=== PATIENT | female | born 1995 | race Hispanic/Latino ===

== ENCOUNTER 2023-02-06 15:38 | Day surgery (SDC) | payer OTHER ==
[2023-02-06] MEDS ORDERED: hydrALAZINE 20 MG/ML VIAL SLOW IVP PRN (16:50)
== END 2023-02-06 18:15 | disposition home health service (06) ==
LOC: CSHLD/OP 15:38
PROVIDERS: ATTEND Obstetrics & Gynecology
DX: O36.8130 Decreased fetal movements, third trimester, not applicable or unspecified (principal); Z79.899 Other long term (current) drug therapy; Z3A.36 36 weeks gestation of pregnancy
CPT/HCPCS: 76819; 99282

== ENCOUNTER 2023-02-17 10:51 | Inpatient (IN) | payer OTHER ==
[2023-02-17] MEDS ORDERED: Penicillin G Potassium 5 MILL.UNITS VIAL ONE (11:41)
[2023-02-17] MEDS ORDERED: Ibuprofen 800 MG TAB PO PRN (11:54)
[2023-02-17] MEDS ORDERED: HYDROcodone/Acetaminophen 5/325 mg Tablet PO PRN ×2 (11:54)
[2023-02-17] MEDS ORDERED: hydrALAZINE 20 MG/ML VIAL SLOW IVP PRN (11:54)
[2023-02-17] MEDS ORDERED: Promethazine HCl 25 MG/ML VIAL IM PRN (11:54)
[2023-02-17] MEDS ORDERED: Ondansetron PF 4 MG/2 ML Vial IVP PRN (11:54)
[2023-02-17] MEDS ORDERED: Lidocaine 1% (PF) 30 ML VIAL SC PRN (11:54)
[2023-02-17] MEDS ORDERED: NS w/ Oxytocin 30 units 500 ML IV SCH ×2 (12:00)
[2023-02-17] MEDS ORDERED: Lactated Ringer's 1,000 ML IV SCH (12:00)
[2023-02-17] MEDS ORDERED: Penicillin G Potassium 5 MILL.UNITS in Sodium Chloride 0.9% 100 ML IVPB SCH (12:00)
[2023-02-17] MEDS ORDERED: fentaNYL 50 mcg/mL 1 mL Vial SLOW IVP PRN (12:10)
[2023-02-17 12:37] LABS: Hemoglobin 12.3 g/dL (12.0-15.5); Mean Corpuscular HGB CONC 33.4 g/dL (32.0-36.0); Mean Corpuscular Hemoglobin 28.3 pg (27.0-33.0); Mean Corpuscular Volume 84.8 fl (81.6-98.3); Mean Platelet Volume 10.1 fl (7.4-10.4); Platelet Count 359 10x3/uL (150-450); RBC Distribution Width 12.9 % (11.5-14.5); Red Blood Cell (RBC) Count 4.34 10x6/uL (3.90-5.03); White Blood Cell (WBC) Count 9.9 10x3/uL (3.5-10.5)
[2023-02-17 13:23] LABS: HBSAg Index 0.16 S/CO (0-0.99); Hep B Surf Ag - L&D Non-Reactive S/CO (NonReactive)
[2023-02-17 13:24] LABS: Syphilis Antibody Nonreactive (Nonreactive); Syphilis Antibody Index 0.04 S/CO (<1.00 Non-Reactive)
[2023-02-17] MEDS: Penicillin G 2.5 MILL.units 2.5 MILL.UNITS in Premix Bag 1 BAG IVPB SCH ×2 (16:24→21:07)
[2023-02-17 16:45] VITALS: BMI 31.4
[2023-02-18] MEDS ORDERED: Bisacodyl 10 MG SUPP PR PRN (01:24)
[2023-02-18] MEDS ORDERED: Preparation H Ointment 28 GM TUBE PR PRN (01:24)
[2023-02-18] MEDS ORDERED: NS w/ Oxytocin 30 units 500 ML IV SCH (01:24)
[2023-02-18] MEDS ORDERED: hydrALAZINE 20 MG/ML VIAL SLOW IVP PRN (01:24)
[2023-02-18] MEDS ORDERED: diphenhydrAMINE 25 MG CAP PO PRN (01:24)
[2023-02-18] MEDS ORDERED: Methylergonovine 0.2 MG/ML VIAL IM PRN (01:24)
[2023-02-18] MEDS ORDERED: Ondansetron PF 4 MG/2 ML Vial IVP PRN (01:24)
[2023-02-18] MEDS ORDERED: Boostrix 0.5 ML (Tdap) VIAL (>/=7 yrs of age) IM ONE (01:24)
[2023-02-18] MEDS ORDERED: Benzocaine-Menthol 82.5 ML CAN TOP PRN (01:24)
[2023-02-18] MEDS ORDERED: Lanolin Ointment 7 GM TUBE TOP PRN (01:24)
[2023-02-18] MEDS ORDERED: Milk Of Magnesia 30 ML UDCUP PO PRN (01:24)
[2023-02-18] MEDS: Ibuprofen 800 MG TAB PO SCH ×4 (06:00→22:03)
[2023-02-18] MEDS: Prenatal Vitamin 1 TAB PO SCH (08:29)
[2023-02-18] MEDS: Ferrous Sulfate 325 MG TAB PO SCH ×2 (08:29→17:25)
[2023-02-18] MEDS: Docusate 100 MG CAP PO SCH ×2 (10:20→22:04)
[2023-02-19] MEDS: Ibuprofen 800 MG TAB PO SCH (05:05)
[2023-02-19 08:42] VITALS: BP 130/85; TEMP 97.9
[2023-02-19] MEDS: Prenatal Vitamin 1 TAB PO SCH (08:55)
[2023-02-19] MEDS: Docusate 100 MG CAP PO SCH (08:55)
== END 2023-02-19 17:05 | disposition home or self-care (01) | DRG 807 ==
LOC: CSHLD 10:51 → CSHANTE 02-18 09:15
PROVIDERS: ADMIT Obstetrics & Gynecology; ATTEND Obstetrics & Gynecology
PROC: 10907ZC Drainage of Amniotic Fluid, Therapeutic from Products of Conception, Via Natural or Artificial Opening (ICD-10-PCS; 2023-02-17)
PROC: 10E0XZZ Delivery of Products of Conception, External Approach (ICD-10-PCS; principal; 2023-02-18)
DX: O99.824 Streptococcus B carrier state complicating childbirth (principal); Z37.0 Single live birth; Z3A.38 38 weeks gestation of pregnancy; Z79.899 Other long term (current) drug therapy
CPT/HCPCS: 85027; 86780; 86850; 86900; 86901; 87340; 99285; J2540